=== PATIENT | male | born 1990 | race Two or more races ===

== ENCOUNTER 2016-09-06 00:49 | Emergency (ER) | payer SELFPAY ==
[~2016-09-06] VITALS: Ht 165.1 cm; Wt 76.2 kg
[2016-09-06 00:54] VITALS: BP 151/82
[2016-09-06] MEDS ORDERED: CEFTRIAXONE 250 MG ONE (01:17)
[2016-09-06] MEDS ORDERED: AZITHROMYCIN 500 MG TABLET ONE (01:17)
[2016-09-06] MEDS ORDERED: AZITHROMYCIN 500 MG TABLET PO ONE (01:30)
[2016-09-06] MEDS ORDERED: CEFTRIAXONE 250 MG IM ONE (01:30)
== END 2016-09-06 01:40 | disposition home or self-care (01) ==
LOC: ED 01:33
DX: N34.2 Other urethritis (principal)
CPT/HCPCS: 87491; 87591; 96372; 99284; J0696